=== PATIENT | female | born 1965 | race Caucasian/White ===

== ENCOUNTER → 2016-09-18 | Outpatient (CLI) | payer OTHER | END | disposition home or self-care (01) | LOC: CDC 09:44 | DX: Z01.810 Encounter for preprocedural cardiovascular examination (principal) | CPT/HCPCS: 93000 ==

== ENCOUNTER 2016-09-25 06:17 | Day surgery (SDC) | payer OTHER ==
[~2016-09-25] VITALS: Ht 167.6 cm; Wt 81.6 kg
[~2016-09-25 06:17] MED LIST: CYTOTEC200 MCG PO; LEVO-T50 MCG PO; MEGACE20 MG PO
[2016-09-25 06:49] VITALS: BP 100/64
[2016-09-25 10:00] VITALS: BP 142/65
[2016-09-25 10:35] VITALS: BP 120/59
== END 2016-09-25 11:00 | disposition home or self-care (01) ==
LOC: SDC
PROC: 0UDB8ZX Extraction of Endometrium, Via Natural or Artificial Opening Endoscopic, Diagnostic (ICD-10-PCS; principal; 2016-09-25)
DX: N92.1 Excessive and frequent menstruation with irregular cycle (principal); N84.0 Polyp of corpus uteri; N88.2 Stricture and stenosis of cervix uteri; E03.9 Hypothyroidism, unspecified; E66.3 Overweight; Z68.29 Body mass index [BMI] 29.0-29.9, adult; Z83.3 Family history of diabetes mellitus; Z82.49 Family history of ischemic heart disease and other diseases of the circulatory system
CPT/HCPCS: 88305; J0690; J1885; J2250; J3010